=== PATIENT | female | born 1950 | race Hispanic/Latino ===

== ENCOUNTER 2018-11-03 09:49 | Outpatient (CLI) | payer MEDICARE, OTHER | END 2018-11-03 09:50 | disposition home or self-care (01) | LOC: RAD 09:49 | DX: N60.02 Solitary cyst of left breast (principal) ==

== ENCOUNTER 2019-01-20 12:45 | Outpatient (CLI) | payer MEDICARE, OTHER | END 2019-01-20 12:46 | disposition home or self-care (01) | LOC: RAD 12:45 ==